=== PATIENT | female | born 1955 | race Caucasian/White ===

== ENCOUNTER 2020-10-14 18:04 | Emergency (ER) | payer MEDICARE, MEDICAID ==
[~2020-10-14] VITALS: Ht 165.1 cm; Wt 74.9 kg
[2020-10-14 18:46] LABS: HEMATOCRIT 28.2 % (36.0-47.0); HEMOGLOBIN 9.9 g/dl (12.0-15.5); MEAN CORPUSCULAR HEMOGLOBIN 44.6 pg (27.0-33.0); MEAN CORPUSCULAR HGB CONC 35.1 g/dl (32.0-36.5); PLATELET COUNT, AUTOMATED 220 10^3/uL (150-450); RED BLOOD COUNT 2.22 10^6/uL (4.00-5.40); WHITE BLOOD COUNT 4.8 10^3/uL (4.0-10.0)
--- NOTE | 2020-10-14 18:46 | REP ---
INDICATION: CHEST PAIN. COMPARISON: None. TECHNIQUE: Single portable AP view of the chest was performed. FINDINGS: There is no acute infiltrate or pulmonary edema. Lungs are clear. The heart is not significantly enlarged. There is a hiatal hernia. There is metallic fixation in the left clavicle. IMPRESSION: No acute pulmonary disease. <Electronically signed by Jorge De Luna > 10/14/20 [id number]
[2020-10-14] MEDS ORDERED: LISI20TA33 PO (18:58)
[2020-10-14 19:23] LABS: ALBUMIN 3.4 GM/DL (3.2-5.2); ALT/SGPT 20 U/L (12-78); BILIRUBIN,DIRECT < 0.1 MG/DL (0.0-0.2); BILIRUBIN,TOTAL 0.2 MG/DL (0.2-1.0); BLOOD UREA NITROGEN 19 MG/DL (7-18); CARBON DIOXIDE LEVEL 26 MEQ/L (21-32); CHLORIDE LEVEL 109 MEQ/L (98-107); CK-MB VALUE MASS < 1.0 NG/ML (<3.6); CPK CREATINE PHOSPHOKINASE 85 U/L (26-192); CREATININE FOR GFR 0.99 MG/DL (0.55-1.30); FREE T4 0.74 NG/DL (0.76-1.46); GLOMERULAR FILTRATION RATE 59.7 (>45); GLUCOSE, FASTING 106 MG/DL (70-100); LIPASE 98 U/L (73-393); MB/CK RELATIVE INDEX 1.18 (< OR =4); POTASSIUM SERUM 4.1 MEQ/L (3.5-5.1); SODIUM LEVEL 140 MEQ/L (136-145); TOTAL PROTEIN 7.3 GM/DL (6.4-8.2); TROPONIN I < 0.02 NG/ML (< 0.10)
[2020-10-14 19:40] LABS: ATYPICAL LYMPH 1 % (0-5); BASOPHILS 1 % (0-1); EOSINOPHILS 1 % (0-3); LYMPHOCYTES 52 % (16-44); MONOCYTES 7 % (0-5); NEUTROPHILS 38 % (28-66); PLATELET ESTIMATE NORMAL (NORMAL)
[2020-10-14] MEDS ORDERED: MACR100C43 PO (21:55)
[2020-10-14] MEDS ORDERED: NITR0.4S14 SL (22:01)
[2020-10-14] MEDS ORDERED: ASPI81TA26 PO (22:01)
[2020-10-14] MEDS ORDERED: hydrALAZINE 20MG/ML 1ML VIAL (J0360 PER 20MG) IV ONE (22:20)
[2020-10-14 22:46] VITALS: BP 188/87
[2020-10-14] MEDS ORDERED: HYDR12CA PO (22:46)
--- NOTE | 2020-10-15 10:16 | ECGEPIP ---
[facility] - ED Test Date: 2020-10-14 Pat Name: SANDRA MCDONALD Department: Room: - Gender: Female [employer]: MATHEW : 1955 Requested By: Emma Mackey Order Number: [id number] Reading MD: Emma Mackey Measurements Intervals [place] Rate: 82 P: 23 [place]: 132 QRS: 26 QRSD: 76 T: 37 QT: 400 QTc: 467 Interpretive Statements Sinus rhythm with frequent premature ventricular complexes NSTTW abnormalities No prior Electronically Signed on 10-15-2020 10:16:28 EDT by Emma Mackey
[2020-10-17] MEDS ORDERED: CEPH500C PO (12:56)
== END 2020-10-14 23:09 | disposition home or self-care (01) ==
LOC: M ED 18:04
DX: N39.0 Urinary tract infection, site not specified (principal); I20.8 Other forms of angina pectoris; I10 Essential (primary) hypertension; Z79.899 Other long term (current) drug therapy; Z79.82 Long term (current) use of aspirin
CPT/HCPCS: 36415; 71045; 80048; 80076; 81001; 82550; 82553; 83690; 84439; 84443; 84484; 85025; 87088; 87186; 93005; 93041; 94760; 96374; 99285; J0360

== ENCOUNTER → 2021-04-18 | Outpatient (CLI) | payer MEDICAID, MEDICARE ==
[~2021-04-18] MED LIST: ASPI81TA26 PO; CEPH500C PO; HYDR12CA PO; LISI20TA33 PO; MACR100C43 PO; NITR0.4S14 SL
== END ==
LOC: M CARPUL 09:30
PROVIDERS: ATTEND Family Medicine
DX: R06.00 Dyspnea, unspecified (principal); R42 Dizziness and giddiness

== ENCOUNTER 2021-10-03 10:32 | Inpatient (IN) | payer MEDICARE ==
[~2021-10-03] VITALS: Ht 165.1 cm; Wt 75.7 kg
[~2021-10-03 10:32] MED LIST changes: +LISI10TA22 PO
[2021-10-03 13:34] LABS: BASO % 0.7 % (0.0-1.0); EOS # 0.4 10^3/uL (0.0-0.5); EOS % 7.5 % (0.0-3.0); HEMATOCRIT 31.8 % (36.0-47.0); HEMOGLOBIN 10.7 g/dl (12.0-15.5); LYMPH # 2.4 10^3/uL (1.5-5.0); LYMPH % 42.6 % (24.0-44.0); MEAN CORPUSCULAR HEMOGLOBIN 41.8 pg (27.0-33.0); MEAN CORPUSCULAR HGB CONC 33.6 g/dl (32.0-36.5); MONO # 0.4 10^3/uL (0.0-0.8); MONO % 6.5 % (2.0-8.0); NEUTROPHILS # 2.4 10^3/uL (1.5-8.5); NEUTROPHILS % 42.5 % (36.0-66.0); PLATELET COUNT, AUTOMATED 315 10^3/uL (150-450); RED BLOOD COUNT 2.56 10^6/uL (4.00-5.40); WHITE BLOOD COUNT 5.7 10^3/uL (4.0-10.0)
[2021-10-03 13:38] LABS: MEAN CORPUSCULAR VOLUME 124.2 fl (80.0-96.0)
[2021-10-03 14:04] LABS: ANISOCYTOSIS 1+
[2021-10-03 14:05] LABS: OVALOCYTES 1+; PLATELET ESTIMATE NORMAL (NORMAL); POIKILOCYTOSIS 1+
[2021-10-03 14:27] LABS: CK-MB VALUE MASS < 1.0 NG/ML (<3.6); CPK CREATINE PHOSPHOKINASE 41 U/L (26-192); MB/CK RELATIVE INDEX 2.44 (< OR =4)
[2021-10-03 14:41] LABS: ACETAMINOPHEN LEVEL < 2.0 UG/ML (10.0-30.0); ALBUMIN 3.8 GM/DL (3.2-5.2); ALT/SGPT 12 U/L (12-78); BILIRUBIN,DIRECT < 0.1 MG/DL (0.0-0.2); BILIRUBIN,TOTAL 0.3 MG/DL (0.2-1.0); BLOOD UREA NITROGEN 43 MG/DL (7-18); CALCIUM LEVEL 9.2 MG/DL (8.8-10.2); CARBON DIOXIDE LEVEL 22 MEQ/L (21-32); CHLORIDE LEVEL 107 MEQ/L (98-107); CREATININE FOR GFR 2.26 MG/DL (0.55-1.30); ETHYL ALCOHOL (ETHANOL) < 0.003 % (0.000-0.010); GLUCOSE, FASTING 103 MG/DL (70-100); POTASSIUM SERUM 5.4 MEQ/L (3.5-5.1); SALICYLATE LEVEL < 1.7 MG/DL (5.0-30.0); SODIUM LEVEL 138 MEQ/L (136-145); TOTAL PROTEIN 7.6 GM/DL (6.4-8.2)
[2021-10-03] MEDS: NS 1,000 ML IV SCH ×2 (15:05→22:02)
[2021-10-03] MEDS ORDERED: NS 500 ML IV ONE (15:05)
[2021-10-03 15:12] LABS: FOLATE > 24.0 NG/ML (>5.4); VITAMIN B12 LEVEL 82 PG/ML (247-911)
[2021-10-03 15:20] LABS: OSMOLALITY SERUM 301 MOSM/KG (280-301)
[2021-10-03 16:14] LABS: RSV AMPLIFICATION NEGATIVE (NEGATIVE)
[2021-10-03] MEDS ORDERED: ASPI81TA26 PO (16:23)
[2021-10-03] MEDS ORDERED: NITR4TASL SL (16:23)
[2021-10-03] MEDS ORDERED: HOME MED LIST COMPLETE! XX SCH (16:25)
[2021-10-03] MEDS ORDERED: MOM 30ML SUSPENSION UDC PO PRN (17:00)
[2021-10-03] MEDS ORDERED: ACETAMINOPHEN TAB 650MG DOSE (2X325MG) PO PRN (17:00)
[2021-10-03] MEDS ORDERED: MAALOX 30 ML SUSP *UDC PO PRN (17:00)
[2021-10-03] MEDS ORDERED: NS 1,000 ML IV SCH (17:10)
[2021-10-03] MEDS ORDERED: PATIROMER SORBITEX CALCIUM 8.4 GM POWDER PACKET (VELTASSA) PO ONE (17:10)
[2021-10-03] MEDS ORDERED: LORazepam 2 MG TAB PO PRN (19:00)
[2021-10-03 19:14] VITALS: BP 156/81
[2021-10-03 19:19] VITALS: BP 156/81
[2021-10-03] MEDS: THIAMINE 100 MG TAB PO SCH (20:45)
[2021-10-03] MEDS: HEPARIN SOD (PORCINE) 5000UNITS/ML 1ML VIAL/SYRINGE SC SCH (20:46)
[2021-10-03 20:54] LABS: CK-MB VALUE MASS < 1.0 NG/ML (<3.6); CPK CREATINE PHOSPHOKINASE 31 U/L (26-192); MB/CK RELATIVE INDEX 3.23 (< OR =4)
[2021-10-03 21:01] LABS: CALCIUM LEVEL 9.1 MG/DL (8.8-10.2); CREATININE FOR GFR 2.05 MG/DL (0.55-1.30); GLOMERULAR FILTRATION RATE 25.7 (>45); POTASSIUM SERUM 4.9 MEQ/L (3.5-5.1)
[2021-10-03 22:00] VITALS: BP 129/73
[2021-10-03 23:36] VITALS: BP 145/81
[2021-10-04 00:13] LABS: HEMOGLOBIN A1c 5.4 %
[2021-10-04 02:45] LABS: CK-MB VALUE MASS < 1.0 NG/ML (<3.6); CPK CREATINE PHOSPHOKINASE 38 U/L (26-192); MB/CK RELATIVE INDEX 2.63 (< OR =4)
[2021-10-04 06:00] VITALS: BP 145/80
[2021-10-04] MEDS: NS 1,000 ML IV SCH ×3 (06:12→22:02)
[2021-10-04] MEDS: HEPARIN SOD (PORCINE) 5000UNITS/ML 1ML VIAL/SYRINGE SC SCH ×3 (06:12→20:17)
[2021-10-04 08:39] LABS: EOS # 0.4 10^3/uL (0.0-0.5); HEMATOCRIT 26.7 % (36.0-47.0); LYMPH # 2.2 10^3/uL (1.5-5.0); LYMPH % 52.3 % (24.0-44.0); MEAN CORPUSCULAR HEMOGLOBIN 41.5 pg (27.0-33.0); MEAN CORPUSCULAR HGB CONC 33.7 g/dl (32.0-36.5); MONO # 0.3 10^3/uL (0.0-0.8); MONO % 6.5 % (2.0-8.0); NEUTROPHILS # 1.3 10^3/uL (1.5-8.5); PLATELET COUNT, AUTOMATED 272 10^3/uL (150-450); RED BLOOD COUNT 2.17 10^6/uL (4.00-5.40); WHITE BLOOD COUNT 4.1 10^3/uL (4.0-10.0)
[2021-10-04 09:17] LABS: CK-MB VALUE MASS < 1.0 NG/ML (<3.6); CPK CREATINE PHOSPHOKINASE 28 U/L (26-192); MB/CK RELATIVE INDEX 3.57 (< OR =4)
[2021-10-04] MEDS: MULTIVITAMINS/MINERALS THERAP 1 TAB PO SCH (09:28)
[2021-10-04] MEDS: THIAMINE 100 MG TAB PO SCH ×2 (09:28→20:17)
[2021-10-04] MEDS: FOLIC ACID 1MG TAB PO SCH (09:28)
[2021-10-04 09:49] LABS: BILIRUBIN,TOTAL 0.2 MG/DL (0.2-1.0); CALCIUM LEVEL 8.2 MG/DL (8.8-10.2); CREATININE FOR GFR 1.62 MG/DL (0.55-1.30); FREE THYROXINE INDEX 3.1 % (1.3-4.8); GLOMERULAR FILTRATION RATE 33.7 (>45); MAGNESIUM LEVEL 2.2 MG/DL (1.8-2.4); POTASSIUM SERUM 5.1 MEQ/L (3.5-5.1); THYROID STIMULATING HORMONE 7.35 uIU/ML (0.358-3.740); TOTAL PROTEIN 6.1 GM/DL (6.4-8.2)
[2021-10-04 14:00] VITALS: BP 131/78
[2021-10-04 21:15] VITALS: BP 128/74
[2021-10-05] MEDS: HEPARIN SOD (PORCINE) 5000UNITS/ML 1ML VIAL/SYRINGE SC SCH ×2 (05:03→14:07)
[2021-10-05 06:06] LABS: HEMATOCRIT 28.4 % (36.0-47.0); HEMOGLOBIN 9.3 g/dl (12.0-15.5); MEAN CORPUSCULAR HEMOGLOBIN 41.2 pg (27.0-33.0); MEAN CORPUSCULAR HGB CONC 32.7 g/dl (32.0-36.5); PLATELET COUNT, AUTOMATED 300 10^3/uL (150-450); RED BLOOD COUNT 2.26 10^6/uL (4.00-5.40)
[2021-10-05] MEDS: NS 1,000 ML IV SCH ×2 (06:06→12:14)
[2021-10-05 06:12] LABS: MEAN CORPUSCULAR VOLUME 125.7 fl (80.0-96.0)
[2021-10-05 06:28] VITALS: BP 135/77
[2021-10-05 06:47] LABS: BILIRUBIN,TOTAL 0.3 MG/DL (0.2-1.0); CALCIUM LEVEL 8.2 MG/DL (8.8-10.2); CREATININE FOR GFR 1.32 MG/DL (0.55-1.30); GLOMERULAR FILTRATION RATE 42.7 (>45); TOTAL PROTEIN 6.2 GM/DL (6.4-8.2)
[2021-10-05] MEDS: THIAMINE 100 MG TAB PO SCH (08:35)
[2021-10-05] MEDS: MULTIVITAMINS/MINERALS THERAP 1 TAB PO SCH (08:35)
[2021-10-05] MEDS: FOLIC ACID 1MG TAB PO SCH (08:35)
[2021-10-05] MEDS ORDERED: VITMTA PO (13:27)
[2021-10-05] MEDS ORDERED: FOLI1TAB11 PO (13:27)
[2021-10-05] MEDS ORDERED: THIA100TA PO (13:27)
== END 2021-10-05 14:34 | disposition home or self-care (01) | DRG 683 ==
LOC: M ED 10:32 → EDBD 10:32 → EDBEDREQSVC 16:09 → M ED INP 16:57 → ENRESERV 18:24 → M MSPAV 19:25
PROVIDERS: ADMIT Family Medicine; ATTEND Family Medicine
DX: N17.9 Acute kidney failure, unspecified (principal); E72.20 Disorder of urea cycle metabolism, unspecified; I50.30 Unspecified diastolic (congestive) heart failure; F10.10 Alcohol abuse, uncomplicated; E87.5 Hyperkalemia; R06.02 Shortness of breath; I11.0 Hypertensive heart disease with heart failure; E86.0 Dehydration; D51.9 Vitamin B12 deficiency anemia, unspecified; E02 Subclinical iodine-deficiency hypothyroidism; Z79.82 Long term (current) use of aspirin; Z79.899 Other long term (current) drug therapy; Z88.1 Allergy status to other antibiotic agents

== ENCOUNTER 2022-03-10 05:50 | Emergency (ER) | payer MEDICARE ==
[~2022-03-10] VITALS: Ht 165.1 cm; Wt 75.5 kg
[~2022-03-10 05:50] MED LIST changes: +FOLI1TAB11 PO; +NITR4TASL SL; +THIA100TA PO; +VITMTA PO
[2022-03-10 06:53] VITALS: BP 199/93
[2022-03-10] MEDS ORDERED: amLODIPine 5 MG TAB PO ONE (07:00)
[2022-03-10 07:23] VITALS: BP 206/107
[2022-03-10 07:48] LABS: BASO # 0.1 10^3/uL (0.0-0.2); BASO % 0.9 % (0.0-1.0); EOS # 0.2 10^3/uL (0.0-0.5); EOS % 2.9 % (0.0-3.0); HEMOGLOBIN 13.5 g/dl (12.0-15.5); LYMPH # 2.2 10^3/uL (1.5-5.0); LYMPH % 32.5 % (24.0-44.0); MEAN CORPUSCULAR HEMOGLOBIN 28.4 pg (27.0-33.0); MEAN CORPUSCULAR HGB CONC 32.9 g/dl (32.0-36.5); MEAN CORPUSCULAR VOLUME 86.3 fl (80.0-96.0); MONO # 0.7 10^3/uL (0.0-0.8); MONO % 10.5 % (2.0-8.0); NEUTROPHILS # 3.5 10^3/uL (1.5-8.5); PLATELET COUNT, AUTOMATED 336 10^3/uL (150-450); RED BLOOD COUNT 4.75 10^6/uL (4.00-5.40); WHITE BLOOD COUNT 6.6 10^3/uL (4.0-10.0)
[2022-03-10 08:20] LABS: ALBUMIN 3.9 G/DL (3.2-5.2); ALKALINE PHOSPHATASE 81 U/L (46-116); ALT/SGPT 13 U/L (7.0-40); AST/SGOT 20 U/L (<34); BILIRUBIN,TOTAL 0.4 MG/DL (0.3-1.2); BLOOD UREA NITROGEN 23 MG/DL (9-23); CALCIUM LEVEL 9.7 MG/DL (8.3-10.6); CARBON DIOXIDE LEVEL 27 MMOL/L (20-31); CHLORIDE LEVEL 104 MMOL/L (98-107); CREATININE FOR GFR 0.98 MG/DL (0.55-1.30); GLOMERULAR FILTRATION RATE > 60.0 (>45); GLUCOSE, FASTING 90 MG/DL (74-106); POTASSIUM SERUM 4.2 MMOL/L (3.5-5.1); SODIUM LEVEL 139 MMOL/L (136-145); TOTAL PROTEIN 7.6 G/DL (5.7-8.2)
[2022-03-10] MEDS ORDERED: ISOVUE-370 76% 100ML VIAL As Ordered ONE (09:01)
== END 2022-03-10 11:28 | disposition home or self-care (01) ==
LOC: M ED 05:50
DX: I10 Essential (primary) hypertension (principal); R06.00 Dyspnea, unspecified; K44.9 Diaphragmatic hernia without obstruction or gangrene; R91.1 Solitary pulmonary nodule; Z79.82 Long term (current) use of aspirin; Z79.899 Other long term (current) drug therapy; Z88.1 Allergy status to other antibiotic agents
CPT/HCPCS: 71046; 71275; 80053; 84484; 85025; 85379; 87486; 87581; 87633; 87798; 93005; 99284; Q9967